=== PATIENT | female | born 1930 | race Caucasian/White ===

== ENCOUNTER → 2016-12-25 | Outpatient (CLI) | payer MEDICARE, OTHER | END | disposition home or self-care (01) | LOC: CFH 09:26 | PROVIDERS: ATTEND Nurse Practitioner | DX: M19.041 Primary osteoarthritis, right hand (principal); M25.841 Other specified joint disorders, right hand; M85.841 Other specified disorders of bone density and structure, right hand ==

== ENCOUNTER → 2018-04-21 | Outpatient (CLI) | payer MEDICARE, OTHER | END | disposition home or self-care (01) | LOC: CFH 09:52 | PROVIDERS: ATTEND Licensed Practical Nurse | DX: Z13.820 Encounter for screening for osteoporosis (principal); M81.0 Age-related osteoporosis without current pathological fracture | CPT/HCPCS: 77080 ==

== ENCOUNTER → 2018-11-05 | Outpatient (CLI) | payer MEDICARE, OTHER | END | disposition home or self-care (01) | LOC: CFH 10:17 | PROVIDERS: ATTEND Nurse Practitioner | DX: M47.813 Spondylosis without myelopathy or radiculopathy, cervicothoracic region (principal); M41.84 Other forms of scoliosis, thoracic region; M50.30 Other cervical disc degeneration, unspecified cervical region; M48.02 Spinal stenosis, cervical region; M25.78 Osteophyte, vertebrae | CPT/HCPCS: 72040; 72072 ==

== ENCOUNTER 2019-09-16 11:44 | Emergency (ER) | payer MEDICARE, OTHER ==
[~2019-09-16] VITALS: Ht 154.9 cm; Wt 60.0 kg
--- NOTE | 2019-09-16 11:52 | NUR ---
EKG UPON ARRIVAL
--- NOTE | 2019-09-16 11:59 | NUR ---
MD IS AT THE BEDSIDE FOR ASSESSMENT
[2019-09-16] MEDS ORDERED: ALBUTEROL HFA 90 MCG/SPRAY INH ONE (12:30)
[2019-09-16 12:44] LABS: BASOPHILS # (AUTO) 0.01 x10^3/uL (0-0.1); BASOPHILS % (AUTO) 0 % (0-1); EOSINOPHILS # (AUTO) 0.03 x10^3/uL (0-0.4); EOSINOPHILS % (AUTO) 1 % (1-7); LYMPHOCYTES # (AUTO) 0.56 x10^3/uL (1-3.4); LYMPHOCYTES % (AUTO) 9 % (22-44); MD NO; MEAN CORPUSCULAR HEMOGLOBIN 33.6 pg (27.0-34.8); MEAN CORPUSCULAR HGB CONC 33.1 g/dL (32.4-35.8); MEAN CORPUSCULAR VOLUME 101.5 fL (80-100); MEAN PLATELET VOLUME 7.7 fL (7.4-10.4); MONOCYTES # (AUTO) 0.39 x10^3/uL (0.2-0.8); MONOCYTES % (AUTO) 7 % (2-9); NEUTROPHILS # (AUTO) 4.96 x10^3/uL (1.8-6.8); NEUTROPHILS % (AUTO) 83 % (42-75); PLATELET COUNT 352 x10^3/uL (130-400); RED BLOOD COUNT 3.81 x10^6/uL (3.82-5.3); RED CELL DISTRIBUTION WIDTH 14.4 % (9.6-15.2)
[2019-09-16 12:55] LABS: ALBUMIN 3.3 g/dL (3.4-5.0); ANION GAP 8 mmol/L (5-15); CALCIUM 8.4 mg/dL (8.5-10.1); CHLORIDE 97 mmol/L (98-107)
[2019-09-16 12:59] LABS: ALANINE AMINOTRANSFERASE 22 U/L (12-78); ALKALINE PHOSPHATASE 53 U/L (45-117); BILIRUBIN,TOTAL 0.4 mg/dL (0.2-1.0); CREATININE 0.55 mg/dL (0.55-1.02); TOTAL PROTEIN 6.7 g/dL (6.4-8.2)
--- NOTE | 2019-09-16 13:08 | NUR ---
ADMIN MDI W CHAMBER. PT TOLERATED WELL
[2019-09-16 14:12] VITALS: BP 138/65
--- NOTE | 2019-09-16 14:17 | NUR ---
PLAN FOR THUMB SPICA THEN DC
--- NOTE | 2019-09-16 15:11 | NUR ---
CAST APPLIED. [facility] CALLED, PT WHEELED TO ENTRANCE OF ER. Patient/Caregiver given discharge instructions and they have confirmed that they understand the instructions. Patient ambulatory with steady gait.
== END 2019-09-16 15:12 | disposition home or self-care (01) ==
LOC: ED 11:57
DX: S52.591A Other fractures of lower end of right radius, initial encounter for closed fracture (principal); Z20.828 Contact with and (suspected) exposure to other viral communicable diseases; R05 Cough; E78.00 Pure hypercholesterolemia, unspecified; I10 Essential (primary) hypertension; E87.1 Hypo-osmolality and hyponatremia; R00.0 Tachycardia, unspecified; X58.XXXA Exposure to other specified factors, initial encounter; Y93.89 Activity, other specified; Y92.89 Other specified places as the place of occurrence of the external cause; Y99.8 Other external cause status
CPT/HCPCS: 29125; 36415; 71045; 80053; 85025; 93005; 99285

== ENCOUNTER 2020-02-10 08:08 | Inpatient (IN) | payer MEDICARE, OTHER ==
[~2020-02-10] VITALS: Ht 154.9 cm; Wt 56.5 kg
--- NOTE | 2020-02-10 08:09 | NUR ---
AGRICULTURAL RESEARCH TECHNOLOGIST: PT TO CT SCAN VIA SIVAKUMAR
--- NOTE | 2020-02-10 08:09 | NUR ---
NEUROSURGICAL NURSE: 0759 RECEIVED STROKE PRE-ALERT VIA [facility], [facility] CALLED
--- NOTE | 2020-02-10 08:13 | NUR ---
Oqmbcadv-IPS-Fcwmmuxv Brown
[2020-02-10 08:38] LABS: BASOPHILS # (AUTO) 0.05 x10^3/uL (0-0.1); BASOPHILS % (AUTO) 1 % (0-1); EOSINOPHILS # (AUTO) 0.06 x10^3/uL (0-0.4); EOSINOPHILS % (AUTO) 1 % (1-7); LYMPHOCYTES # (AUTO) 1.67 x10^3/uL (1-3.4); LYMPHOCYTES % (AUTO) 26 % (22-44); MD NO; MEAN CORPUSCULAR HEMOGLOBIN 33.4 pg (27.0-34.8); MEAN CORPUSCULAR HGB CONC 33.3 g/dL (32.4-35.8); MEAN CORPUSCULAR VOLUME 100.3 fL (80-100); MEAN PLATELET VOLUME 7.8 fL (7.4-10.4); MONOCYTES % (AUTO) 6 % (2-9); NEUTROPHILS % (AUTO) 66 % (42-75); PLATELET COUNT 241 x10^3/uL (130-400); RED BLOOD COUNT 4.19 x10^6/uL (3.82-5.3); RED CELL DISTRIBUTION WIDTH 14.9 % (9.6-15.2)
--- NOTE | 2020-02-10 08:39 | NUR ---
[facility] was called at 0800 after [facility] pre-alert. Neurology paged directly after [facility] called. Dr. Jerome called back and talked to Dr. Oliver as patient was in CT.
[2020-02-10 08:45] LABS: INTERNATIONAL NORMALIZED RATIO 0.97 (0.93-1.1)
[2020-02-10] MEDS ORDERED: OMNIPAQUE 350 MG/ML, 75ML BOTTLE ONE (09:04)
--- NOTE | 2020-02-10 09:25 | NUR ---
5 MG BOLUS OF ACTIVASE GIVEN AT 0925. Addendum: 02/10/20 at 09 by CWHELCHEL ALTEPLASE BOLUS 5 MG GIVEN
[2020-02-10] MEDS ORDERED: ALTEPLASE IV ONE ×2 (09:27→09:30)
--- NOTE | 2020-02-10 09:27 | NUR ---
ALTEPLASE DRIP INFUSING NOTED ON MAR
[2020-02-10] MEDS ORDERED: PLEASE ENTER HEIGHT AND WEIGHT MC SCH (09:30)
[2020-02-10] MEDS ORDERED: ALTEPLASE 5 MG in SYRINGE 1 EA IVPush ONE ×2 (09:30→10:00)
--- NOTE | 2020-02-10 10:10 | NUR ---
REFER TO [facility]OW [facility] FOR SERIAL VITALS AND NEURO ASSESSMENT
[2020-02-10] MEDS ORDERED: SODIUM CHLORIDE 0.9% 1,000 ML IV SCH (10:17)
[2020-02-10] MEDS ORDERED: BISACODYL 10 MG SUPP PR PRN (10:30)
[2020-02-10] MEDS ORDERED: ACETAMINOPHEN 325 MG TABLET PO PRN (10:30)
[2020-02-10] MEDS ORDERED: ENALAPRILAT 1.25 MG/ML, 2ML IVPush PRN (10:30)
[2020-02-10] MEDS ORDERED: POLYETHYLENE GLYCOL 17 GM PACKET PO PRN (10:30)
[2020-02-10] MEDS ORDERED: ONDANSETRON 2MG/ML, 2ML IVPush PRN (10:30)
[2020-02-10] MEDS ORDERED: OXYcodone IR 5MG TABLET PO PRN (10:30)
[2020-02-10] MEDS: ENOXAPARIN 40 MG/0.4 ML SQ SCH (10:30)
[2020-02-10] MEDS ORDERED: LABETALOL 5MG/ML, 20ML IVPush PRN (10:30)
--- NOTE | 2020-02-10 10:35 | NUR ---
REPORT TO ARUNA [place]. TO BE TRANSPORTED TO FLOOR
--- NOTE | 2020-02-10 10:38 | NUR ---
NOTED TO HAVE SWELLING LEFT LIP DEVELOPI. TO TRANSFER PT AND DISCUSS WITH RECEIVING RN
--- NOTE | 2020-02-10 10:40 | NUR ---
DR SALEH AT BEDSIDE EXAMINING PT WITH ORDERS RECEIVED FOR LIP AND TONGUE SWELLING ON LEFT SIDE.
[2020-02-10] MEDS ORDERED: DIPHENHYDRAMINE 50 MG/ML, 1ML ONE (10:42)
[2020-02-10] MEDS ORDERED: methylPREDNISolone SOD SUCC 125 MG/2 ML ONE (10:42)
[2020-02-10] MEDS ORDERED: ALTEPLASE 1 ML ONE (10:46)
--- NOTE | 2020-02-10 10:58 | NUR ---
MEDICATED FOR TONGUE AND LIP SWELLING NOTED ON AUG. TRANSFERED TO CCU WITH DEANN AND RN ON MONITOR. [facility] MADE AWARE OF LIP AND TONGUE SWELLING DEVELOPING AND WHAT MEDS GIVEN FOR SAME. DR NUÑEZ AT CCU STATION AND HAD BEEN MADE AWARE BY DR LAW BUITRAGO.
[2020-02-10] MEDS ORDERED: DIPHENHYDRAMINE 50 MG/ML, 1ML IVPush ONE (11:00)
[2020-02-10] MEDS ORDERED: methylPREDNISolone SOD SUCC 125 MG/2 ML IVPush ONE (11:30)
[2020-02-10] MEDS: ATORVASTATIN 80 MG TABLET PO SCH (20:54)
[2020-02-10 21:47] VITALS: BP 112/77
[2020-02-10] MEDS ORDERED: SODIUM CHLORIDE 0.9% 1,000ML IVBOLUS ONE (23:30)
[2020-02-11 04:45] VITALS: BP 140/76
[2020-02-11] MEDS: SENNA/DOCUSATE TABLET PO SCH (09:00)
[2020-02-11 10:33] LABS: ALANINE AMINOTRANSFERASE 22 U/L (12-78); ALBUMIN 3.6 g/dL (3.4-5.0); ANION GAP 11 mmol/L (5-15); CALCIUM 8.8 mg/dL (8.5-10.1); CHLORIDE 99 mmol/L (98-107); CHOLESTEROL, TOTAL 282 mg/dL (140-239); CREATININE 0.82 mg/dL (0.55-1.02)
[2020-02-11 10:35] LABS: ALKALINE PHOSPHATASE 43 U/L (45-117); BILIRUBIN,TOTAL 0.6 mg/dL (0.2-1.0); CHOL/HDL RATIO 3.7; HDL CHOL % 27 % (28-40); HDL CHOLESTEROL (DIRECT) 76 mg/dL (40-60); LDL CHOLESTEROL,CALCULATED 188 mg/dL (54-169); LDL/HDL RATIO 2.5 (0.5-3.0); TOTAL PROTEIN 6.6 g/dL (6.4-8.2); TRIGLYCERIDES 88 mg/dL (50-200); VLDL CHOLESTEROL 18 mg/dL (0-25)
[2020-02-11] MEDS: OMEPRAZOLE 20 MG CAPSULE.DR PO SCH (11:45)
[2020-02-11] MEDS: ENOXAPARIN 40 MG/0.4 ML SQ SCH (11:46)
[2020-02-11 13:16] LABS: MEAN CORPUSCULAR HEMOGLOBIN 33.1 pg (27.0-34.8); MEAN CORPUSCULAR HGB CONC 32.6 g/dL (32.4-35.8); MEAN CORPUSCULAR VOLUME 101.6 fL (80-100); MEAN PLATELET VOLUME 7.8 fL (7.4-10.4); PLATELET COUNT 278 x10^3/uL (130-400); RED BLOOD COUNT 4.72 x10^6/uL (3.82-5.3); RED CELL DISTRIBUTION WIDTH 15.1 % (9.6-15.2)
[2020-02-11 13:30] LABS: MD YES
[2020-02-11 13:32] LABS: BAND#(MANUAL) 0.17 x10^3/uL; BANDS%(MANUAL) 1 % (0-7); EOS#(MANUAL) 0.17 x10^3/uL (0.0-0.4); EOS% (MANUAL) 1 % (1-7); LYMPH#(MANUAL) 1.89 x10^3/uL (1-3.4); LYMPHS% (MANUAL) 11 % (22-44); MONOS#(MANUAL) 0.52 x10^3/uL (0.3-2.7); MONOS% (MANUAL) 3 % (2-9); SEG#(MANUAL) 14.45 x10^3/uL (1.8-6.8); SEGS% (MANUAL) 84 % (42-75)
[2020-02-11 13:33] LABS: <PLATELET ESTIMATE> ADEQUATE; <PLT MORPHOLOGY> NORMAL PLT MORPH; ANISOCYTOSIS 1+
[2020-02-11 21:00] VITALS: BP 138/82
[2020-02-11] MEDS: ATORVASTATIN 80 MG TABLET PO SCH (22:18)
[2020-02-12 01:01] VITALS: BP 140/88
[2020-02-12] MEDS: OMEPRAZOLE 20 MG CAPSULE.DR PO SCH (06:18)
[2020-02-12 07:02] LABS: MEAN CORPUSCULAR HGB CONC 32.7 g/dL (32.4-35.8); MEAN PLATELET VOLUME 8.2 fL (7.4-10.4); PLATELET COUNT 275 x10^3/uL (130-400); RED BLOOD COUNT 4.84 x10^6/uL (3.82-5.3); RED CELL DISTRIBUTION WIDTH 14.9 % (9.6-15.2)
[2020-02-12 07:10] LABS: ANION GAP 8 mmol/L (5-15); CHLORIDE 99 mmol/L (98-107)
[2020-02-12 07:17] LABS: MD YES
[2020-02-12 07:18] LABS: <PLATELET ESTIMATE> ADEQUATE; <PLT MORPHOLOGY> NORMAL PLT MORPH; <RBC MORPHOLOGY> NORMAL; BAND#(MANUAL) 0.27 x10^3/uL; BANDS%(MANUAL) 2 % (0-7); LYMPH#(MANUAL) 1.22 x10^3/uL (1-3.4); LYMPHS% (MANUAL) 9 % (22-44); MONOS#(MANUAL) 0.54 x10^3/uL (0.3-2.7); MONOS% (MANUAL) 4 % (2-9); SEG#(MANUAL) 11.56 x10^3/uL (1.8-6.8); SEGS% (MANUAL) 85 % (42-75)
[2020-02-12 08:44] VITALS: BP 143/90
[2020-02-12] MEDS: SENNA/DOCUSATE TABLET PO SCH (09:00)
[2020-02-12] MEDS: ENOXAPARIN 30 MG/0.3 ML SQ SCH (09:01)
[2020-02-12] MEDS ORDERED: CLOPIDOGREL 75 MG TABLET PO SCH (10:00)
[2020-02-12] MEDS: ASPIRIN 81 MG TABLET EC PO SCH (10:49)
[2020-02-12 12:34] VITALS: BP 157/92
[2020-02-12 21:17] VITALS: BP 135/87
[2020-02-12] MEDS: ATORVASTATIN 80 MG TABLET PO SCH (21:57)
[2020-02-12] MEDS: CARVEDILOL 6.25 MG TABLET PO SCH (21:57)
[2020-02-13 02:23] VITALS: BP 129/84
[2020-02-13] MEDS: CARVEDILOL 6.25 MG TABLET PO SCH ×2 (06:39→17:57)
[2020-02-13] MEDS: ASPIRIN 81 MG TABLET EC PO SCH (06:40)
[2020-02-13] MEDS: OMEPRAZOLE 20 MG CAPSULE.DR PO SCH (06:40)
[2020-02-13 06:45] VITALS: BP 138/79
[2020-02-13] MEDS: SENNA/DOCUSATE TABLET PO SCH (08:51)
[2020-02-13] MEDS: ENOXAPARIN 30 MG/0.3 ML SQ SCH (08:59)
[2020-02-13] MEDS ORDERED: ASPI81TA45 PO (11:25)
[2020-02-13] MEDS ORDERED: CARV6.2512 PO (11:25)
[2020-02-13] MEDS ORDERED: OMEP-110 PO (11:25)
[2020-02-13] MEDS ORDERED: SENN-193 PO (11:25)
[2020-02-13] MEDS ORDERED: ATOR-2 PO (11:25)
[2020-02-13] MEDS ORDERED: OXYC5TAB3 PO (11:25)
[2020-02-13 12:53] VITALS: BP 100/64
[2020-02-13 20:06] VITALS: BP 132/84
[2020-02-13] MEDS: ATORVASTATIN 80 MG TABLET PO SCH (20:26)
[2020-02-13 23:50] LABS: CLOSTRIDIUM DIFFICILE ANTIGEN NEGATIVE; CLOSTRIDIUM DIFFICILE TOXIN NEGATIVE (Negative)
[2020-02-14] MEDS ORDERED: DIPHENOXYLATE/ATROPINE TABLET PO PRN (01:00)
[2020-02-14 01:29] VITALS: BP 133/74
[2020-02-14] MEDS: OMEPRAZOLE 20 MG CAPSULE.DR PO SCH ×2 (06:56→09:05)
[2020-02-14] MEDS: CARVEDILOL 6.25 MG TABLET PO SCH ×3 (06:57→18:13)
[2020-02-14] MEDS: ASPIRIN 81 MG TABLET EC PO SCH ×2 (06:57→09:05)
[2020-02-14 07:25] VITALS: BP 145/89
[2020-02-14] MEDS: SENNA/DOCUSATE TABLET PO SCH (07:33)
[2020-02-14] MEDS: ENOXAPARIN 30 MG/0.3 ML SQ SCH (09:05)
[2020-02-14 12:38] VITALS: BP 134/87
[2020-02-14 19:51] VITALS: BP 138/86
[2020-02-14] MEDS: ATORVASTATIN 80 MG TABLET PO SCH (20:00)
[2020-02-15] MEDS: OMEPRAZOLE 20 MG CAPSULE.DR PO SCH (06:48)
[2020-02-15 06:49] VITALS: BP 113/77
[2020-02-15] MEDS: ASPIRIN 81 MG TABLET EC PO SCH (08:21)
[2020-02-15] MEDS: CARVEDILOL 6.25 MG TABLET PO SCH (08:21)
[2020-02-15] MEDS: SENNA/DOCUSATE TABLET PO SCH (08:22)
[2020-02-15] MEDS: ENOXAPARIN 30 MG/0.3 ML SQ SCH (09:00)
[2020-02-15 12:40] VITALS: BP 115/73
== END 2020-02-15 13:49 | DRG 62 ==
LOC: ED 09:27 → EDIP 10:15 → CCU 10:51 → 5SO 02-11 18:57
PROVIDERS: ADMIT Internal Medicine; ATTEND Family Medicine
DX: I63.511 Cerebral infarction due to unspecified occlusion or stenosis of right middle cerebral artery (principal); G81.94 Hemiplegia, unspecified affecting left nondominant side; E87.1 Hypo-osmolality and hyponatremia; T78.3XXA Angioneurotic edema, initial encounter; I10 Essential (primary) hypertension; K21.9 Gastro-esophageal reflux disease without esophagitis; E55.9 Vitamin D deficiency, unspecified; E78.5 Hyperlipidemia, unspecified; D75.89 Other specified diseases of blood and blood-forming organs; R47.1 Dysarthria and anarthria; R27.0 Ataxia, unspecified
CPT/HCPCS: 36415; 37195; 70450; 70496; 70498; 70551; 80047; 80048; 80053; 80061; 82607; 82803; 82962; 84443; 85025; 85610; 85730; 87081; 87324; 93005; 93306; 93356; 93880; 96374; 96375; 99285; G0378; J1650; J2997; Q9967; J1200; J2930; J7030